=== PATIENT | male | born 1940 | race Caucasian/White ===

== ENCOUNTER 2017-11-24 23:13 | Inpatient (IN) | payer OTHER ==
[~2017-11-24] VITALS: Ht 188 cm; Wt 72.6 kg
[~2017-11-24 23:13] MED LIST: ASPI-621 PO; ATOR20TA9 PO; ENAL20TA68 PO; TICA90TA PO; UBID100C24 PO
[2017-11-24] MEDS ORDERED: METOPROLOL PO (23:28)
[2017-11-24] MEDS ORDERED: HYDROCHLOROTHIAZIDE PO (23:28)
[2017-11-24] MEDS ORDERED: AMLODIPINE PO (23:28)
[2017-11-24] MEDS ORDERED: LIPITOR PO (23:28)
[2017-11-24] MEDS ORDERED: SODIUM CHLORIDE FLUSH 10ML SYR IVF ONE (23:30)
[2017-11-24 23:36] LABS: BASOPHILS # (AUTO) 0.06 x10^3/uL (0-0.1); BASOPHILS % (AUTO) 1 % (0-1); EOSINOPHILS # (AUTO) 0.52 x10^3/uL (0-0.4); EOSINOPHILS % (AUTO) 5 % (1-7); LYMPHOCYTES # (AUTO) 2.54 x10^3/uL (1-3.4); LYMPHOCYTES % (AUTO) 22 % (22-44); MD NO; MEAN CORPUSCULAR HEMOGLOBIN 31.8 pg (27.5-34.5); MEAN CORPUSCULAR HGB CONC 33.6 g/dL (33.2-36.2); MEAN CORPUSCULAR VOLUME 94.7 fL (81-97); MONOCYTES # (AUTO) 1.09 x10^3/uL (0.2-0.8); MONOCYTES % (AUTO) 10 % (2-9); NEUTROPHILS # (AUTO) 7.13 x10^3/uL (1.8-6.8); NEUTROPHILS % (AUTO) 63 % (42-75); PLATELET COUNT 183 x10^3/uL (130-400); RED BLOOD COUNT 4.25 x10^6/uL (4.38-5.82); RED CELL DISTRIBUTION WIDTH 14.6 % (9.4-14.8)
[2017-11-24 23:42] LABS: PROTHROMBIN TIME 10.4 Seconds (9.6-11.5)
[2017-11-24 23:47] LABS: ALANINE AMINOTRANSFERASE 21 U/L (12-78); ALBUMIN 3.5 g/dL (3.4-5.0); ANION GAP 10 mmol/L (5-15); CALCIUM 8.5 mg/dL (8.5-10.1); CHLORIDE 113 mmol/L (98-107)
[2017-11-24 23:50] LABS: ALKALINE PHOSPHATASE 65 U/L (45-117); CREATININE 2.54 mg/dL (0.7-1.3); TOTAL PROTEIN 7.1 g/dL (6.4-8.2); TROPONIN I < 0.015 ng/mL (0.000-0.045)
[2017-11-25] MEDS ORDERED: SODIUM CHLORIDE 0.9%, 500ML IVBOLUS ONE
[2017-11-25 00:02] LABS: BILIRUBIN,TOTAL 0.2 mg/dL (0.2-1.0)
[2017-11-25] MEDS: SODIUM CHLORIDE 0.9% 1,000 ML IV SCH ×2 (01:02→11:52)
[2017-11-25 01:07] VITALS: BP 146/55
[2017-11-25] MEDS ORDERED: ONDANSETRON ODT 4 MG PO PRN (01:30)
[2017-11-25] MEDS ORDERED: ACETAMINOPHEN 325 MG TABLET PO PRN (01:30)
[2017-11-25] MEDS: NICOTINE 14MG/24 HR PATCH.TD24 TD SCH ×2 (01:30→20:27)
[2017-11-25] MEDS ORDERED: DOCUSATE 100 MG CAPSULE PO PRN (01:30)
[2017-11-25] MEDS ORDERED: ONDANSETRON 2MG/ML, 2ML IVPush PRN (01:30)
[2017-11-25] MEDS ORDERED: BISACODYL 10 MG SUPP PR PRN (01:30)
[2017-11-25] MEDS: HEPARIN 5,000 UNITS/ML, 1ML SQ SCH ×3 (01:45→18:00)
[2017-11-25 06:01] LABS: MICROSCOPIC NOT IND
[2017-11-25 06:02] LABS: CULTURE INDICATED? NO
[2017-11-25 07:22] VITALS: BP 137/66
[2017-11-25] MEDS ORDERED: ATROPINE SYRINGE 0.1 MG/ML, 10ML IVPush PRN (08:00)
[2017-11-25] MEDS ORDERED: AMLODIPINE 2.5 MG TABLET PO SCH (09:00)
[2017-11-25] MEDS: SENNA/DOCUSATE TABLET PO SCH (09:00)
[2017-11-25] MEDS: ASPIRIN 81 MG TABLET EC PO SCH (09:47)
[2017-11-25] MEDS ORDERED: LOSA25TA5 PO (11:19)
[2017-11-25] MEDS ORDERED: AMLO5TAB2 PO (11:19)
[2017-11-25] MEDS ORDERED: HYDR12.53 PO (11:19)
[2017-11-25] MEDS ORDERED: METO25TA35 PO (11:19)
[2017-11-25] MEDS ORDERED: ATOR20TA PO (11:19)
[2017-11-25 12:19] VITALS: BP 129/66
[2017-11-25 13:21] VITALS: BP 124/69
[2017-11-25] MEDS: LEVOTHYROXINE 25 MCG TABLET PO SCH (16:36)
[2017-11-25] MEDS: SODIUM CHLORIDE 0.45% 1,000 ML IV SCH (16:37)
[2017-11-25 19:07] VITALS: BP 151/56
[2017-11-25] MEDS ORDERED: ATORVASTATIN CALCIUM 20 MG PO SCH (21:00)
[2017-11-25] MEDS ORDERED: ATORVASTATIN 20 MG TABLET PO SCH (21:00)
[2017-11-26 00:12] VITALS: BP 157/60
[2017-11-26] MEDS: SODIUM CHLORIDE 0.45% 1,000 ML IV SCH ×2 (01:33→11:30)
[2017-11-26] MEDS: HEPARIN 5,000 UNITS/ML, 1ML SQ SCH ×2 (02:00→07:54)
[2017-11-26] MEDS: LEVOTHYROXINE 25 MCG TABLET PO SCH (05:00)
[2017-11-26 05:27] LABS: CHLORIDE 118 mmol/L (98-107)
[2017-11-26 05:31] LABS: BASOPHILS # (AUTO) 0.08 x10^3/uL (0-0.1); BASOPHILS % (AUTO) 1 % (0-1); EOSINOPHILS # (AUTO) 0.54 x10^3/uL (0-0.4); EOSINOPHILS % (AUTO) 6 % (1-7); LYMPHOCYTES # (AUTO) 2.16 x10^3/uL (1-3.4); LYMPHOCYTES % (AUTO) 25 % (22-44); MD NO; MEAN CORPUSCULAR HEMOGLOBIN 31.8 pg (27.5-34.5); MEAN CORPUSCULAR HGB CONC 33.5 g/dL (33.2-36.2); MEAN CORPUSCULAR VOLUME 94.8 fL (81-97); MEAN PLATELET VOLUME 9.1 fL (7.4-10.4); MONOCYTES # (AUTO) 0.96 x10^3/uL (0.2-0.8); MONOCYTES % (AUTO) 11 % (2-9); NEUTROPHILS # (AUTO) 4.98 x10^3/uL (1.8-6.8); NEUTROPHILS % (AUTO) 57 % (42-75); PLATELET COUNT 166 x10^3/uL (130-400); RED BLOOD COUNT 3.81 x10^6/uL (4.38-5.82)
[2017-11-26 05:37] LABS: ALANINE AMINOTRANSFERASE 18 U/L (12-78); ALBUMIN 2.8 g/dL (3.4-5.0); ALKALINE PHOSPHATASE 45 U/L (45-117); ANION GAP 8 mmol/L (5-15); BILIRUBIN,TOTAL 0.5 mg/dL (0.2-1.0); CALCIUM 7.5 mg/dL (8.5-10.1); CHOL/HDL RATIO 2.2; CHOLESTEROL, TOTAL 89 mg/dL (140-239); CREATININE 1.28 mg/dL (0.7-1.3); FREE T4 (FREE THYROXINE) 1.02 ng/dL (0.76-1.46); HDL CHOL % 45 % (26-37); HDL CHOLESTEROL (DIRECT) 40 mg/dL (40-60); LDL CHOLESTEROL,CALCULATED 37 mg/dL (54-169); LDL/HDL RATIO 0.9 (0.5-3.0); TOTAL PROTEIN 5.8 g/dL (6.4-8.2); TRIGLYCERIDES 61 mg/dL (50-200); VLDL CHOLESTEROL 12 mg/dL (0-25)
[2017-11-26] MEDS: SENNA/DOCUSATE TABLET PO SCH (07:54)
[2017-11-26] MEDS: ASPIRIN 81 MG TABLET EC PO SCH (07:54)
[2017-11-26 08:18] VITALS: BP 141/64
[2017-11-26] MEDS ORDERED: AMLODIPINE 5 MG TABLET PO SCH (09:00)
[2017-11-26] MEDS ORDERED: NEUTRA PHOS K 250 MG TABLET PO SCH (09:00)
[2017-11-26] MEDS ORDERED: LEVO25TA2 PO (13:14)
== END 2017-11-26 14:35 | disposition home or self-care (01) | DRG 682 ==
LOC: ED 11-25 00:40 → EDIP 11-25 00:45 → 5SO 11-25 01:14 → DCLOUNGE 11-26 14:13
PROVIDERS: ADMIT Internal Medicine; ATTEND Internal Medicine
DX: N17.9 Acute kidney failure, unspecified (principal); G93.41 Metabolic encephalopathy; E87.2 Acidosis; D64.9 Anemia, unspecified; D72.829 Elevated white blood cell count, unspecified; E03.9 Hypothyroidism, unspecified; E78.00 Pure hypercholesterolemia, unspecified; E78.5 Hyperlipidemia, unspecified; E86.0 Dehydration; F17.200 Nicotine dependence, unspecified, uncomplicated; I07.1 Rheumatic tricuspid insufficiency; I10 Essential (primary) hypertension; I25.10 Atherosclerotic heart disease of native coronary artery without angina pectoris; R00.1 Bradycardia, unspecified; I73.9 Peripheral vascular disease, unspecified; J44.9 Chronic obstructive pulmonary disease, unspecified; Z79.82 Long term (current) use of aspirin; Z95.5 Presence of coronary angioplasty implant and graft; I25.2 Old myocardial infarction
CPT/HCPCS: 36415; 71045; 80053; 80061; 81003; 82306; 83735; 83970; 84100; 84439; 84443; 84484; 85025; 85610; 93005; 93306; 99285; J1644; J7030; J7040